=== PATIENT | male | born 1930 | race Caucasian/White ===

== ENCOUNTER 2017-01-27 15:32 | Outpatient (CLI) | payer OTHER ==
--- NOTE | 2017-01-27 16:54 | DIAGNOSTIC IMAGING REPORT ---
PROCEDURE: CT HEAD WITHOUT CONTRAST INDICATION: SQUAMOUS CELL CARCINOMA OF THE FOREHEAD TECHNIQUE: Noncontrast axial images with sagittal and coronal reformations. COMPARISON: None. FINDINGS: There is a 3.7 cm (cranial caudal) X 3.2 cm (transverse) X 0.8 cm (AP) plaque-like soft tissue mass in the right paramidline frontal soft tissues. This extends to the periosteum, but there is no evidence of osseous involvement. Lesion is located approximate 1 cm superior to the frontal sinus. Brain and ventricles are within normal limits with mild generalized cortical atrophic changes. No evidence of mass lesion or hydrocephalous. Sinuses and mastoids are normal. IMPRESSION: 1. There is a 3.7 x 3.2 x 0.8 cm plaque-like soft tissue mass in the right anterior frontal subcutaneous tissues. Findings are consistent with neoplasm. While the lesion extends to the periosteum, there is no evidence of osseous involvement. 2. Otherwise negative head CT. No evidence of intracranial abnormality. 3. Findings called to Dr. Junior Wood. All CT scans at this facility use dose modulation, iterative reconstruction, and/or weight-based dosing when appropriate to reduce radiation dose to as low as reasonably achievable.
[2017-02-02] MEDS ORDERED: ASPIRIN ADULT L81 M1 PO (14:23)
[2017-02-02] MEDS ORDERED: MULTIPLE VITAMIN PO (14:24)
[2017-02-02] MEDS ORDERED: FLOMAX0.4 MG PO (14:24)
[2017-02-02] MEDS ORDERED: GINKGO BILOBA120 MG PO (14:25)
[2017-02-02] MEDS ORDERED: [UNRECOGNIZED DRUG - MIXTURE] PO (14:28)
[2017-02-02] MEDS ORDERED: HYDROCHLOROTHIA25 MG PO (14:29)
[2017-02-02] MEDS ORDERED: LISINOPRIL20 MG PO (14:32)
[2017-02-02] MEDS ORDERED: METFORMIN HCL1000 MG PO (14:32)
[2017-02-02] MEDS ORDERED: LATANOPROST0.005 % OP (14:33)
[2017-02-02] MEDS ORDERED: LANTUS SOL100 UNITS/ SC (14:34)
[2017-02-02] MEDS ORDERED: ZYRTEC ALLERGY10 M1 PO (14:35)
== END 2017-01-27 23:00 ==
LOC: CT SRH 15:32
DX: C44.329 Squamous cell carcinoma of skin of other parts of face (principal)

== ENCOUNTER 2017-02-04 07:18 | Day surgery (SDC) | payer OTHER ==
[~2017-02-04] VITALS: Ht 175.3 cm; Wt 85.4 kg
[~2017-02-04 07:18] MED LIST: ASPIRIN ADULT L81 M1 PO; FLOMAX0.4 MG PO; GINKGO BILOBA120 MG PO; HYDROCHLOROTHIA25 MG PO; LANTUS SOL100 UNITS/ SC; LATANOPROST0.005 % OP; LISINOPRIL20 MG PO; METFORMIN HCL1000 MG PO; MULTIPLE VITAMIN PO; ZYRTEC ALLERGY10 M1 PO; [UNRECOGNIZED DRUG - MIXTURE] PO
[2017-02-04] MEDS ORDERED: NORCO1 TA1 PO (08:53)
--- NOTE | 2017-02-04 08:55 | Provider's Discharge Care Plan ---
Problem, Goal, Plan Problem List 1. Squamous cell carcinoma of skin of face Goals: Improve disease control Instructions: Follow up as directed
--- NOTE | 2017-02-04 08:55 | Provider's Discharge Care Plan ---
Problem, Goal, Plan Problem List 1. Squamous cell carcinoma of skin of face Goals: Improve disease control Instructions: Follow up as directed
[2017-02-04 14:18] VITALS: BP 120/64
--- NOTE | 2017-02-05 08:42 | OPERATIVE REPORT ---
DATE OF SURGERY: 02/04/2017 SURGEON: DIRK WOOD MD PREOPERATIVE DIAGNOSIS: 1. Recurrent squamous cell carcinoma, right forehead skin. POSTOPERATIVE DIAGNOSIS: 1. Recurrent squamous cell carcinoma, right forehead skin. PROCEDURE PERFORMED: 1. Wide local excision of squamous cell carcinoma of the skin, right forehead, with frozen section control of margins. 2. Local tissue advancement flap closure. ANESTHESIA: General endotracheal anesthesia. ESTIMATED BLOOD LOSS: 100 mL. IV FLUIDS: 1000 mL of lactated Ringers COMPLICATIONS: None. SURGICAL FINDINGS: 1. Pericranial/periosteum frozen section margin clear. 2. Circumferential skin and subcutaneous, as well as frontalis muscle, soft tissue margins clear of disease. 3. Total surface area of primary defect and secondary defect created by the reconstructive tissue advancement flap was 96 sq cm. 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 SURGICAL TECHNIQUE: After reviewing informed consent with the patient and his in the preoperative holding area he was taken back to the operating room for anesthesia induction. Once intubated, time-out was performed in the usual fashion. The forehead was marked, prepped, and draped in sterile fashion. Local anesthetic consisting of 1% lidocaine with epinephrine 1:100,000 was then infiltrated into the region of concern on right forehead, as well as into the areas of anticipated margin excision. After allowing a few minutes for the vasoconstrictive effect of the local to take hold, a 15 blade scalpel then used to sharply excise the tumor mass. This was placed in fixative for permanent histologic evaluation. A circumferential soft tissue margin was then excised and sent for frozen section the 12 o'clock position in the en bloc margin specimen was marked with suture and marking pen centrally, at the deepest aspect of the primary defect. The pericranium was still left intact across the frontal bone. It did not appear to be grossly involved by tumor. A specimen of the pericranium which was still within the wound was then excised and sent for frozen section evaluation as well. All frozen section margins were reported as clear of disease. We are therefore proceeded with reconstruction. A laterally based left forehead and mandaeism area soft tissue and cutaneous advancement flap was then marked out in the manner of a rotational advancement flap. A Burow's triangle was then also marked out and removed from the glabellar forehead. The flap was incised with a 15 blade scalpel and elevated in the subgaleal plane down to the level of the conjoined tendon with the temporalis muscle. Here dissection was taken down into the subperiosteal level, across the conjoined tendon, and across the level of the deep temporal fascia in an effort to spare the frontalis branches of the facial nerve from the left forehead. The flap was thus elevated and advanced into the primary defect. Bipolar electrocauterization was utilized sparingly to achieve hemostasis. The wound was then closed in layers with reapproximation of the periosteum and the galeal levels, as well as the deep dermal level, using 2-0 inverted interrupted Vicryl sutures. Back cuts were made laterally as well to minimize tension on the flap. The superficial skin closure was then completed with skin di for the scalp portion of closure and a combination of horizontal mattress and running locking 5-0 fast-absorbing gut sutures across the forehead portion of closure. The patient was then aroused. Straight catheterization was performed to empty the patient's bladder prior to extubation. He was then extubated in the operating room and transferred to the recovery area in stable condition, with no evidence of acute postoperative complications. Topical antibiotic was applied liberally to the closure line. He was later discharged home in the care of family. Topical antibiotic was applied liberally to the closure line. He was later discharged home in the care of family. DISPOSITION: The patient had instructions given to him upon discharge. He also has a prescription for pain medication. He has been advised to follow up with Dr. Wood next week for wound check, suture removal, and discussion of further management considerations.
== END 2017-02-04 14:59 | disposition home or self-care (01) ==
LOC: SCU SRH 07:18 → OR SRH 07:18 → SCU SRH 07:19 → OR SRH 09:00
PROVIDERS: Otolaryngology
PROC: 0HX1XZZ Transfer Face Skin, External Approach (ICD-10-PCS; principal; 2017-02-04 09:00)
PROC: 0JB10ZZ Excision of Face Subcutaneous Tissue and Fascia, Open Approach (ICD-10-PCS; principal; 2017-02-04 09:00)
DX: C44.329 Squamous cell carcinoma of skin of other parts of face (principal); E11.9 Type 2 diabetes mellitus without complications; Z79.4 Long term (current) use of insulin; I10 Essential (primary) hypertension
CPT/HCPCS: 29229; 29240; 50004; 60001; 70002; 80102; 80212; 84038; 84544